=== PATIENT | female | born 1990 ===

== ENCOUNTER 2017-03-28 18:31 | Emergency (ER) | payer MEDICAID, OTHER ==
[2017-03-28 18:42] VITALS: BP 136/83; PULSE 74; RESP 18; TEMP 98.7; O2SAT 99
--- NOTE | 2017-03-28 19:13 | ED PDOC ---
HPI: Female Pain Time Seen by Provider: 03/28/17 18:58 Chief Complaint (Nursing): Female Genitourinary Additional History Per: Patient Additional Complaint(s): CC: ABD Pain 26F p/w spotting and lower abd pain x3 days that has progressed to vaginal bleeding. She is concerned that this is not her period because she is "early" but reports taking home test today and it was "negative". She has not taken anything for the discomfort. She denies fevers, chills, diarrhea, vaginal discharge, dysuria. LMP 03/02/17, last sexual intercourse with unprotected. ROS: negative except as per HPI PMH: None PSH: None SHx: Smoke: Denies, Alcohol: socially, Drugs: denies Allergies: NKDA Last Menstral Period: 03/02/17 : 5 Para: 2 Miscarriage: 3 Past Medical History Vital Signs: Last Vital Signs Temp 37.1 C 03/28/17 18:39 Pulse 74 03/28/17 18:39 Resp 18 03/28/17 18:39 BP 136/83 03/28/17 18:39 Pulse Ox 99 03/28/17 18:39 - Family History Family History: States: Unknown Family Hx - Home Medications Home Medications: Ambulatory Orders Medication Instructions Recorded No Known Home Med 03/28/17 - Allergies Allergies/Adverse Reactions: Allergies Allergy/AdvReac Type Severity Reaction Status Date / Time No Known Allergies Allergy Verified 03/07/16 17:21 Review of Systems ROS Statement: Except As Marked, All Systems Reviewed And Found Negative Gastrointestinal: Positive for: Abdominal Pain (crampy lower abd "across abdomen ") Physical Exam - Reviewed Vital Signs Reviewed: Yes - Physical Exam Appears: Positive for: Well, Non-toxic, No Acute Distress Skin: Positive for: Normal Color, Warm, Dry Eye Exam: Positive for: EOMI, PERRL Neck: Positive for: Normal, Supple Cardiovascular/Chest: Positive for: Regular Rate, Rhythm Respiratory: Positive for: Normal Breath Sounds. Negative for: Rales, Rhonchi, Wheezing Gastrointestinal/Abdominal: Positive for: Bowel Sounds, Soft, Tenderness ( mildly ttp across lower abdomen). Negative for: Rebound Back: Negative for: L CVA Tenderness, R CVA Tenderness Extremity: Positive for: Normal ROM, Capillary Refill (<3s) - ECG O2 Sat by Pulse Oximetry: 99 Medical Decision Making Medical Decision MakinF with symptoms and history c/w menstruation despite not having this spectrum previously. DDx- menstruation vs. vs. less likely PID or STI - Urine Dip: WNL - U preg: NEGATIVE - Pelvic Ultrasound Re-Eval PAin improved with Ibuprofen TV Ultrasound WNL Disposition - Clinical Impression Clinical Impression: Menstruation - Patient ED Disposition Is Patient to be Admitted: No Counseled Patient/Family Regarding: Studies Performed, Need For Followup - Disposition Disposition: Routine/Home Disposition Time: 00:25 Condition: GOOD Forms: [employer] (Greek)
[2017-03-28 19:44] LABS: RBC URINE 1 /hpf (0-3); URINE BILIRUBIN NEGATIVE (NEGATIVE); URINE BLOOD MODERATE (NEGATIVE); URINE COLOR YELLOW (YELLOW); URINE GLUCOSE (UA) NEG (Normal); URINE KETONE NEGATIVE (NEGATIVE); URINE LEUKOCYTE ESTERASE NEG Leu/uL (Negative); URINE PROTEIN NEGATIVE (NEGATIVE); WBC URINE 1 /hpf (0-5)
--- NOTE | 2017-03-28 23:19 | US ---
EXAM: US Pelvis, Transvaginal CLINICAL HISTORY: 26 years old, female; Pain; Pelvic pain; Additional info: Lower abd pain TECHNIQUE: Real-time transvaginal pelvic ultrasound (complete) with image documentation. Transvaginal imaging was used for better evaluation of the endometrium and adnexa. COMPARISON: No relevant prior studies available. FINDINGS: Uterus/cervix: Retroverted uterus. Uterus measures 4.2 x 6.1 x 3.5 cm in size. No myometrial mass. Endometrium: 0.8 cm in thickness. Right ovary: 2.1 x 1.8 x 2.1 cm in size. No mass. Small follicles. Normal flow. Left ovary: 4.0 x 1.1 x 2.9 cm in size. No mass. Small follicles. Normal flow. Free fluid: Trace free fluid within pelvis. No significant free fluid. Bladder: Empty bladder which cannot be evaluated with this probe. IMPRESSION: 1.No acute findings. 2.Non-acute findings are described above.
== END 2017-03-29 00:40 | disposition home or self-care (01) ==
LOC: H.ER 18:31
DX: N92.6 Irregular menstruation, unspecified (principal)

== ENCOUNTER 2018-01-28 17:55 | Emergency (ER) | payer MEDICAID ==
[2018-01-28 18:20] VITALS: RESP 18
[2018-01-28] MEDS ORDERED: Sodium Chloride 0.9% 1,000 ML IV STA (19:08)
--- NOTE | 2018-01-28 19:08 | ED PDOC ---
HPI: General Adult Time Seen by Provider: 01/28/18 18:45 Chief Complaint (Nursing): Abdominal Pain Chief Complaint (Provider): 8 weeks with abd pain History Per: Patient Additional Complaint(s): 27-year-old female currently 8 weeks presents to emergency department with right side lower abdominal pain that started earlier today. Her OB told her to come to ED for further evaluation. Patient has mild nausea with no vomiting, no dysuria, hematuria, vaginal bleeding or discharge. Patient is (had 3 abortions in the past). PMD: Dr. Zamarripa Past Medical History Reviewed: Historical Data, Nursing Documentation, Vital Signs Vital Signs: Last Vital Signs Temp 98.3 F 01/28/18 18:16 Pulse 83 01/28/18 18:16 Resp 18 01/28/18 18:16 BP 106/67 01/28/18 18:16 Pulse Ox 99 01/28/18 20:06 - Medical History PMH: No Chronic Diseases - Family History Family History: States: No Known Family Hx - Living Arrangements Living Arrangements: With Family - Social History Current smoker - smoking cessation education provided: No Alcohol: None Drugs: Denies - Home Medications Home Medications: Ambulatory Orders Medication Instructions Recorded No Known Home Med 03/28/17 - Allergies Allergies/Adverse Reactions: Allergies Allergy/AdvReac Type Severity Reaction Status Date / Time No Known Allergies Allergy Verified 03/07/16 17:21 Review of Systems ROS Statement: Except As Marked, All Systems Reviewed And Found Negative Constitutional: Negative for: Fever Cardiovascular: Negative for: Chest Pain Respiratory: Negative for: Cough Gastrointestinal: Positive for: Nausea, Abdominal Pain. Negative for: Vomiting , Diarrhea Genitourinary Female: Positive for: Pelvic Pain (right sided). Negative for: Dysuria, Frequency, Incontinence, Hematuria, Vaginal Discharge, Vaginal Bleeding Physical Exam - Reviewed Nursing Documentation Reviewed: Yes Vital Signs Reviewed: Yes - Physical Exam Appears: Positive for: Well, Non-toxic, No Acute Distress Skin: Positive for: Normal Color. Negative for: Rash Eye Exam: Positive for: Normal appearance Cardiovascular/Chest: Positive for: Regular Rate, Rhythm Respiratory: Positive for: Normal Breath Sounds Gastrointestinal/Abdominal: Positive for: Soft. Negative for: Tenderness, Distended, Guarding, Rebound Back: Negative for: L CVA Tenderness, R CVA Tenderness Extremity: Positive for: Normal ROM Neurologic/Psych: Positive for: Alert, Oriented - Laboratory Results Result Diagrams: 01/28/18 19:23 01/28/18 19:23 - ECG O2 Sat by Pulse Oximetry: 99 Pulse Ox Interpretation: Normal - Other Rad OB TV US X-Ray: Read By Radiologist X-Ray Interpretation: 8 weeks, 1 day, FHR 168, no acute finding Medical Decision Making Medical Decision Makin27 year old female with abd pain Plan: urine dip CBC CMP Beta OB TV US IVF Patient aware of all diagnostic testing results, all questions answered. Advised fluids, rest and OB follow-up in 2-3 days. Patient aware she can return any time if acutely worse. Disposition - Clinical Impression Clinical Impression: Abdominal pain during - Patient ED Disposition Is Patient to be Admitted: No Counseled Patient/Family Regarding: Studies Performed, Diagnosis, Need For Followup - Disposition [facility] Disposition: Routine/Home Disposition Time: 21:53 Condition: STABLE Additional Instructions: Tylenol for pain as needed. Drink plenty of fluids. Follow-up with OB in 2-3 days. Instructions: - The Second Month Forms: [employer] (French) Results - Lab Results Lab Results: 01/28/1818 01/28/18 19:23 19:23 19:23 WBC 9.6 RBC 4.11 Hgb 12.2 Hct 35.7 MCV 86.9 MCH 29.7 MCHC 34.2 RDW 13.7 Plt Count 216 MPV 9.5 Neut % (Auto) 78.1 H Lymph % (Auto) 14.0 L [place] % (Auto) 6.4 Eos % (Auto) 1.2 Baso % (Auto) 0.3 Neut # (Auto) 7.5 H Lymph # (Auto) 1.3 [place] # (Auto) 0.6 Eos # (Auto) 0.1 Baso # (Auto) 0.0 Sodium 138 Potassium 3.7 Chloride 104 Carbon Dioxide 22 Anion Gap 16 BUN 9 Creatinine 0.5 L Est GFR ( Amer) > 60 Est GFR (Non-Af Amer) > 60 Random Glucose 91 Calcium 8.7 Total Bilirubin 0.4 AST 37 H ALT 61 H Alkaline Phosphatase 56 Total Protein 7.3 Albumin 4.1 Globulin 3.1 Albumin/Globulin Ratio 1.3 Beta HCG, Quant 578965.00 Urine Color Yellow Urine Clarity Slighty-cloudy Urine pH 6.0 Ur Specific [place] 1.028 Urine Protein Negative Urine Glucose (UA) Neg Urine Ketones Negative Urine Blood Negative Urine Nitrate Negative Urine Bilirubin Negative Urine Urobilinogen 2.0 H Ur Leukocyte Esterase Neg Urine RBC (Auto) 2 Urine Microscopic WBC 2 Ur Squamous Epith Cells < 1 Urine Bacteria Rare
[2018-01-28 19:35] LABS: BASO % 0.3 % (0.0-2.0); EOS # 0.1 K/uL (0.0-0.7); EOS % 1.2 % (0.0-4.0); HEMOGLOBIN 12.2 g/dL (12.0-16.0); LYMPH # 1.3 K/uL (1.0-4.3); MEAN CELL VOLUME 86.9 fl (81.0-99.0); MEAN CORPUSCULAR HEMOGLOBIN 29.7 pg (27.0-31.0); MEAN CORPUSCULAR HGB CONC 34.2 g/dL (33.0-37.0); MEAN PLATELET VOLUME 9.5 fl (7.2-11.7); MONO # 0.6 K/uL (0.0-0.8); MONO % 6.4 % (0.0-10.0); NEUT # 7.5 K/uL (1.8-7.0); NEUT % 78.1 % (50.0-75.0); RBC 4.11 Mil/uL (3.80-5.20); RED CELL DISTRIBUTION WIDTH 13.7 % (11.5-14.5); WHITE BLOOD COUNT 9.6 K/uL (4.8-10.8)
[2018-01-28 19:41] LABS: ALB/GLOB RATIO 1.3 (1.0-2.1); ALBUMIN 4.1 g/dL (3.5-5.0); ALT/SGPT 61 U/L (9-52); AST/SGOT 37 U/L (14-36); BLOOD UREA NITROGEN 9 mg/dl (7-17); CALCIUM 8.7 mg/dL (8.4-10.2); GFR AFRICAN-AMERICAN > 60; GFR NON-AFRICAN AMERICAN > 60
[2018-01-28 19:52] LABS: SQUAMOUS EPITHIAL < 1 /hpf (0-5); URINE BACTERIA RARE (<OCC); URINE BILIRUBIN NEGATIVE (NEGATIVE); URINE BLOOD NEGATIVE (NEGATIVE); URINE CLARITY SLIGHTY-CLOUDY (Clear); URINE COLOR YELLOW (YELLOW); URINE GLUCOSE (UA) NEG (Normal); URINE LEUKOCYTE ESTERASE NEG Leu/uL (Negative); URINE PROTEIN NEGATIVE (NEGATIVE)
[2018-01-28 22:34] VITALS: BP 104/71; PULSE 74; TEMP 98.7; O2SAT 100
--- NOTE | 2018-01-29 09:24 | US ---
Date of service: 01/28/2018 PROCEDURE: OB Pelvic Ultrasound HISTORY: 8 weeks , abd pain COMPARISON: None available. FINDINGS: UTERUS: Single live intrauterine gestation. CRL measures 1.8 cm equivalent to 8 weeks and 1 day gestatioin Gestational sac diameter measures 3.7 cm equivalent to 8 weeks and 6 days gestation age (Ultrasound estimated): 8 weeks and 4 days Date of delivery (Ultrasound estimated) : 09/05/2018 Heart rate: 1168 bpm. Bailye-gestational hemorrhage: None. Uterus measures 8.9 x 7.0 x 6.7 cm. No mass CERVIX: Long and closed. No cervical abnormality seen. RIGHT OVARY: Measures 3.9 x 2.5 x 3.1 cm. No mass. Normal flow. LEFT OVARY: Measures 2.3 x 1.6 x 2.1 cm. No mass. Normal flow. FREE FLUID: None. OTHER FINDINGS: None. IMPRESSION: Single live intrauterine gestation with mean gestational age of 8 weeks and 4 days. The estimated date of delivery by ultrasound is 09/05/2018. A preliminary report was provided by [facility].
== END 2018-01-28 22:34 | disposition home or self-care (01) ==
LOC: H.ER 17:55
DX: O26.891 Other specified pregnancy related conditions, first trimester (principal); Z3A.08 8 weeks gestation of pregnancy
CPT/HCPCS: 76817; 80053; 81003; 84702; 85025; 99284; J7030

== ENCOUNTER 2018-08-10 08:20 | Inpatient (IN) | payer MEDICAID ==
--- NOTE | 2018-08-10 09:05 | OBADHP ---
Datetime: 08/10/2018 08:58 Admit Comment, IP Provider: GBS neg; admit to l/D and possible augumentation of labor Extremities - PN: Normal Abdomen - PN: Abnormal Back - PN: Normal Breast - PN: Not Done Lungs - PN: Normal Thyroid - PN: Normal Neurologic - PN: Not Done HEENT - PN: Normal General - PN: Normal Presentation-Admit: c FHR - Baseline A Provider: 140 Amniotic Fluid Color, Provider: Clear Membranes, Provider: Ruptured Comments, ACOG Physical Exam: Abd soft ND, but gravid, fundus at 35 cm FCA+' SVE gross pooling, + co ugh test, cx opened to 3cm, ext no calf tenderness Gestation - Est Wks by US: 36.0 Pool Provider: Positive IP Hx Assessment: The History has been Reviewed and is Current Vital Signs Provider: Reviewed IP Chief Complaint: Uterine contractions; Suspected ruptured membranes NICHD Variability Prov Fetus A: Minimal - Undetectable to <5bpm NICHD Accel Fetus A IP Provider: 10X10 NICHD Decel Fetus A IP Provider: None Dilatation, Provider: 3 Effacement, Provider: 50 Station, Provider: -2 Genitourinary Exam: Normal DTRs - PN: Normal EGA AdmitDate IP: 36.0 IP Adm Impression: , intrauterine ; Active labor; Ruptured Membranes IP Admit Plan: Admit to unit; Initiate labor protocol
[2018-08-10 09:11] VITALS: BMI 26.0
[2018-08-10] MEDS: Lactated Ringer's 1,000 ML IV SCH ×4 (09:40→15:20)
[2018-08-10] MEDS ORDERED: Oxytocin 30 UNIT 30 UNITS/500 ML BAG IV ONE ×2 (10:04→12:07)
[2018-08-10] MEDS ORDERED: OXYTOCIN/0.9 % NS 20 UNIT/1,000 ML BAG IV ONE ×2 (10:04→21:22)
[2018-08-10 12:32] LABS: BASO % 0.4 % (0.0-2.0); EOS # 0.1 K/uL (0.0-0.7); EOS % 1.3 % (0.0-4.0); HEMOGLOBIN 10.2 g/dL (12.0-16.0); LYMPH # 1.1 K/uL (1.0-4.3); LYMPH % 12.5 % (20.0-40.0); MEAN CELL VOLUME 81.3 fl (81.0-99.0); MEAN CORPUSCULAR HEMOGLOBIN 26.9 pg (27.0-31.0); MEAN CORPUSCULAR HGB CONC 33.1 g/dL (33.0-37.0); MEAN PLATELET VOLUME 8.7 fl (7.2-11.7); MONO # 0.8 K/uL (0.0-0.8); MONO % 8.9 % (0.0-10.0); NEUT # 6.6 K/uL (1.8-7.0); NEUT % 76.9 % (50.0-75.0); RBC 3.8 Mil/uL (3.80-5.20); RED CELL DISTRIBUTION WIDTH 13.8 % (11.5-14.5); WHITE BLOOD COUNT 8.6 K/uL (4.8-10.8)
[2018-08-10] MEDS ORDERED: Fentanyl/Bupivacaine HCl 250 ML EPI ONE (15:18)
[2018-08-10] MEDS ORDERED: Bupivacaine HCl 0.25% PF (10 ml) Inj ONE (15:22)
--- NOTE | 2018-08-10 21:15 | OBDS ---
MATERNAL INFORMATION Delivery Anesthesia: Epidural Estimated Blood Loss (ml): 200 Maternal Complications: Other Other Maternal Complications: prematurity Provider Comments: Delivered a living baby boy appears AGA, cried spontaneously 9/9; AF clear, placenta delivered complete and intact Uterus contracted well, no lacerations noted in cx, vagina or perineum. Tolerated procedure well no complications LABOR SUMMARY EDC: 09/07/2018 00:00 No. Babies in Womb: 1 Attempted: No Labor Anesthesia: Epidural LABOR INFORMATION Reason for Induction: Not Applicable Onset of Labor: 08/10/2018 14:00 Oxytocin: Augmentation Group B Beta Strep: Negative Antibiotics # of Doses: na Antibiotics Time of Last Dose: na Steroids Given: None Reason Steroids Not Administered: Not Applicable MEMBRANES Membranes Rupture Method: Spontaneous Rupture of Membranes: 08/10/2018 07:15 Amniotic Fluid Color: Clear Amniotic Fluid Amount: Small Amniotic Fluid Odor: Normal VAGINAL DELIVERY Episiotomy: None Laceration Extension: N/A Laceration Type: None Laceration Repair: Not Applicable Laceration Repair Note: n/a Sponge Count Correct: Yes Sharps Count Correct: Yes Count Comment: count correct and verified by tech. CSECTION DELIVERY Primary Indication: N/A Secondary Indication: N/A CSection Incision: N/A Uterine Closure: N/A PRESENTATION/POSITION BABY A Presentation: Cephalic
[2018-08-10] MEDS ORDERED: Oxycodone/Acetaminophen 5/325 mg Tab PO PRN (21:22)
[2018-08-10] MEDS ORDERED: Benzocaine/Menthol SPRAY TOP PRN (21:22)
--- NOTE | 2018-08-10 21:35 | NBADN ---
Datetime: 08/10/2018 21:33 Nsy Prov Gen Appearance: Within Normal Limits Nsy Prov Gen Appearance: Within Normal Limits Nsy Prov Skin: Within Normal Limits Nsy Prov Neuro: Normal Tone; [place]; Grasp; Root; Suck Nsy Prov Musculoskeletal: Within Normal Limits; Full Range of Motion; Spontaneous Movement All Extre mities; Intact Clavicles; Clavicles without Crepitus; Gluteal Folds Symmetrical; Spine Within Normal Limits; No Sacral Dimple/Cyst Nsy Prov Head: Normal Fontanelles; Normocephalic; Sutures WNL Nsy Prov EENT: Mouth Within Normal Limits; Ears Within Normal Limits; Eyes Within Normal Limits; Eye s Red Reflex Bilaterally; Nose Within Normal Limits; Face Within Normal Limits Nsy Prov Cardiovascular: Within Normal Limits; Normal Pulses Nsy Prov Respiratory: Within Normal Limits Nsy Prov GI: Within Normal Limits; Soft; Normal Liver; Non Palpable Spleen; Patent Anus Nsy Prov Umbilicus: Within Normal Limits; Three Vessel Cord Nsy Prov : Normal Male Genitalia Nsy Prov Impression: Healthy Term ; Vital Signs Appropriate; Bonding Appropriately; Voiding a nd Stooling Nsy Prov Plan: Continue [place] [facility] Nsy Prov Impression/Plan Details: 36 weeks male, AGA, . Datetime: 08/10/2018 08:42 Mother's Rule Inc Maternal Age: Age >=35 at HOLLI not specified Mother's Rule Thalassemia: Thalassemia History not specified Mother's Rule Neural Tube Defect: Neural Tube Defect History not specified Mother's Rule Congenital Heart: Congenital Heart Defect not specified Mother's Rule Down Syndrome: Down Syndrome History not specified Mother's Rule Ludwin-Sachs: Ludwin-Sachs History not specified Mother's Rule Adan: Adan History not specified Mother's Rule Familial Dysauto: Familial Dysautonomia History not specified Mother's Rule Sickle Cell: Sickle Cell Disease/Trait History not specified Mother's Rule Hemophilia: Hemophilia/Blood Disorder History not specified Mother's Rule Muscular Dystrophy: Muscular Dystrophy History not specified Mother's Rule Cystic Fibrosis: Cystic Fibrosis History not specified Mother's Rule Rachel's Chor: [place]'s Chorea History not specified Mother's Rule Mental Retardation: Mental Retardation/Autism History not specified Mother's Rule Fragile X: Fragile X Testing History not specified Mother's Rule Oth Inherited DO: Other Inherited/Chromosomal Disorders not specified Mother's Rule Maternal Metabolic: Maternal Metabolic History not specified Mother's Rule FOB Defects: Pt Father or FOB Defect History not specified Mother's Rule Hx Stillborn MBL: Loss/Stillborn History not specified Mother's Rule Other Genetic Hx: Other Genetic History not specified Mother's Rule Drugs/Medications: Drugs/Medications History not specified Mother's Rule Gonorrhea: Gonorrhea History Not Specified Mother's Rule Chlamydia: Chlamydia History not specified Mother's Rule Syphilis: Syphilis History not specified Mother's Rule HIV/AIDS Exp: HIV/Aids Exposure not specified Mother's Rule HPV: Human Papillomavirus History not specified Mother's Rule Genital Herpes: Genital Herpes not specified Mother's Rule TB: Tuberculosis History not specified Mother's Rule Hepatitis: Hepatitis History Not Specified Mother's Rule Rash or Viral Ill: Rash or Viral Illness History not specified Mother's Rule Diabetes: Diabetes History not specified Mother's Rule Hypertension MBL: History of Hypertension Not Specified Mother's Rule Heart Disease: Heart Disease History not specified Mother's Rule Autoimmune: Autoimmune Disorder History not specified Mother's Rule Kidney Disease: History of Kidney Disease/UTI not specified Mother's Rule Neurologic: Neurologic/Epilepsy Disorders not specified Mother's Rule Psych Disorders: Psychiatric Disorder History not specified Mother's Rule Depression/PP Dep: Depression/ Depression History not specified Mother's Rule Hepaitis/tLiver: History of Hepatitis/Liver Disease not specified Mother's Rule Varicos/Phlebitis: Varicosities/Phlebitis History Not Specified Mother's Rule Thyroid Dysfunct: Thyroid Dysfunction not specified Mother's Rule Trauma/Violence: Trauma/Violence History Not Specified Mother's Rule Blood Transfusion: Blood Transfusion History not specified Mother's Rule Sensitization: D (Rh) Sensitization not specified Mother's Rule Pulmonary: Pulmonary (Asthma, TB) History not specified Mother's Rule Breast: Breast History not specified Mother's Rule Quarter Trimmer Surgery: Quarter Trimmer Surgery Hx not specified Mother's Rule Hosp/Surgery: Hospitalization/Surgery History not specified Mother's Rule Anesthetic Comp: Anesthetic Complications Hx not specified Mother's Rule Abnormal Pap: Abnormal Pap Smear not specified Mother's Rule Uterine Anomaly: Uterine Anomaly/TANISHA not specified Mother's Rule Infertility: Infertility Not Specified Mother's Rule ART Treatment: ART Treatment History not specified Mother's Rule Other Med Disease: Other Medical Diseases History not specified Mother's Rule Family History: Significant Family History not specified
[2018-08-11] MEDS ORDERED: Oxycodone/Acetaminophen 5/325 mg Tab PO PRN (02:47)
[2018-08-11] MEDS ORDERED: Benzocaine/Menthol SPRAY TOP PRN (02:47)
[2018-08-11 06:10] LABS: BASO % 0.2 % (0.0-2.0); EOS # 0.1 K/uL (0.0-0.7); EOS % 0.6 % (0.0-4.0); LYMPH # 1.1 K/uL (1.0-4.3); LYMPH % 10.8 % (20.0-40.0); MEAN CELL VOLUME 81.4 fl (81.0-99.0); MEAN CORPUSCULAR HEMOGLOBIN 26.7 pg (27.0-31.0); MEAN CORPUSCULAR HGB CONC 32.9 g/dL (33.0-37.0); MEAN PLATELET VOLUME 8.5 fl (7.2-11.7); MONO # 0.9 K/uL (0.0-0.8); MONO % 8.3 % (0.0-10.0); NEUT # 8.3 K/uL (1.8-7.0); NEUT % 80.1 % (50.0-75.0); RBC 3.36 Mil/uL (3.80-5.20); RED CELL DISTRIBUTION WIDTH 14.1 % (11.5-14.5); WHITE BLOOD COUNT 10.4 K/uL (4.8-10.8)
--- NOTE | 2018-08-11 08:25 | OBPPN ---
Datetime: 08/11/2018 08:20 PP Pain Prov: Within normal limits PP Pain Prov comment: Denies SOB, chest or leg pains PP Nausea Prov: Denies PP Flatus Prov: Yes PP Nausea Prov comment: denies dizziness PP Breasts Prov: Normal PP Lungs Prov: Normal PP Abdomen/Uterus Prov: Abnormal PP Lochia Prov: Normal PP Vulva/Perineum Prov: Normal PP CVA Tenderness Prov: Normal PP Extremities Prov: Normal PP C/S Incision Prov: Not Applicable PP Progress Prov: Normal PP Comments Phys Exam Prov: breast NE, NT; abd soft ND, fundus firm at umb. NT, ext no edema or calf tenderness. PP Impression Prov: Normal progression PP Plan Prov: Continue present management PP Progress Note Prov: OOB and ambulation, continue PP care. IP PP Procedures: None
--- NOTE | 2018-08-12 08:28 | OBPPN ---
Datetime: 08/12/2018 08:24 PP Pain Prov: Within normal limits PP Pain Prov comment: No SOB, chest pains or leg pains PP Nausea Prov: Denies PP Flatus Prov: Yes PP BM Prov: Yes PP Breasts Prov: Normal PP Lungs Prov: Normal PP Abdomen/Uterus Prov: Abnormal PP Lochia Prov: Normal PP Vulva/Perineum Prov: Normal PP CVA Tenderness Prov: Normal PP Extremities Prov: Normal PP C/S Incision Prov: Not Applicable PP Progress Prov: Normal PP Comments Phys Exam Prov: breast NE, NT; Abd soft< ND, fundus firm below the umb NT; Ext no calf t enderness. PP Impression Prov: Normal progression PP Plan Prov: Discharge PP Progress Note Prov: D/C home with instructions and follow up office 4-6 wks IP PP Procedures: None Vital Signs Provider PP: Reviewed
[2018-08-12 21:22] VITALS: BP 122/77; PULSE 67; RESP 20; TEMP 97.9; O2SAT 100
== END 2018-08-12 17:00 | disposition home or self-care (01) | DRG 372 ==
LOC: H.EROB2 08:20 → H.EROB 08:31 → H.EROB2 09:08 → H.EROB 09:09 → H.L&D 12:28 → H.OB/GYN 08-11 02:20
PROVIDERS: ADMIT Specialist; ATTEND Specialist
PROC: 10E0XZZ Delivery of Products of Conception, External Approach (ICD-10-PCS; principal; 2018-08-10)
PROC: 4A1HXCZ Monitoring of Products of Conception, Cardiac Rate, External Approach (ICD-10-PCS; 2018-08-10)
DX: O60.23X1 Term delivery with preterm labor, third trimester, fetus 1 (principal); Z3A.35 35 weeks gestation of pregnancy; Z37.0 Single live birth